=== PATIENT | male | born 1975 | race Caucasian/White ===

== ENCOUNTER 2019-07-29 08:41 | Emergency (ER) | payer MEDICAID ==
[2019-07-29 08:51] VITALS: BP 201/137
== END 2019-07-29 11:04 | disposition left against medical advice (07) ==
LOC: ED 08:41
DX: Z53.21 Procedure and treatment not carried out due to patient leaving prior to being seen by health care provider (principal)

== ENCOUNTER 2019-07-30 21:51 | Emergency (ER) | payer MEDICAID ==
--- NOTE | 2019-07-30 22:01 | ED Physician Documentation ---
PD HPI MHE - Stated complaint Stated Complaint: MHE - Chief complaint Chief Complaint: MHE - History obtained from History obtained from: Police - History of Present Illness Primary symptom: Aggressive behavior, Other (bizarre behavior) Timing - onset: Unknown Recently seen: Emergency Dept (was in this ED ([facility]) yesterday but left without being seen) - Additional information Additional information: brought to ED by police for odd behavior; per police report, patient "was walking in the middle of the roadway. He has been unable to answer direct questions." "...rambling on about random things. He disrobed himself out in public and has had multiple calls this evening with his demeanor." Patient is agitated in ED and exhibits labile affect, cannot contribute to HPI, ROS. He does not answer questions with appropriate answers. Laughing inappropriately at times, making animal noises at times. Review of Systems Unable to obtain: AMS, Uncooperative PD PAST MEDICAL HISTORY - Past Medical History Other Past Medical History: PER AYESHA form: "h/o HTN, smoking, insomnia, depression, SI, bipolar disorder, schizoaffective disorder, EtOH, homelessness." - Past Surgical History Other past surgical history: unknown - Present Medications Home Medications: Ambulatory Orders Medication Instructions Recorded Confirmed No Known Home Medications 07/29/19 07/29/19 - Allergies Allergies/Adverse Reactions: Allergies Allergy/AdvReac Type Severity Reaction Status Date / Time Unable to Assess Allergy Verified 07/29/19 08:48 PD ED PE NORMAL - Vitals Vital signs reviewed: Yes - General General: Well developed/nourished, Other (awake, alert. unable to assess orientation due to bizarre, inappropriate answers) - HEENT HEENT: PERRL - Neck Neck: Supple, no meningeal sign - Cardiac Cardiac: No murmur - Respiratory Respiratory: No respiratory distress, Clear bilaterally - Derm Derm: Normal color, Warm and dry - Extremities Extremities: Normal ROM s pain PD ED PE EXPANDED - Cardiac Cardiac: Tachy, Regular Rhythm - Psych Psych: Agitated, Flight of ideas Results - Vitals Vitals: Vital Signs - 24 hr 07/30/19 07/31/19 07/31/19 21:54 01:11 04:30 Temperature 36.9 C Heart Rate 109 H 99 73 Respiratory 24 22 14 Rate Blood Pressure 190/139 H 199/101 H 148/94 H O2 Saturation 99 98 97 Oxygen O2 Source Room air - Labs Labs: Laboratory Tests 07/30/19 07/30/19 07/31/19 23:51 23:51 00:20 WBC 8.5 RBC 4.31 L Hgb 13.0 L Hct 39.2 L MCV 91.0 MCH 30.2 MCHC 33.2 RDW 13.4 Plt Count 206 MPV 10.8 Neut # (Auto) 5.9 Lymph # (Auto) 2.0 Banks # (Auto) 0.5 Eos # (Auto) 0.1 Baso # (Auto) 0.0 Absolute Nucleated RBC 0.00 Nucleated RBC % 0.0 Sodium Potassium Chloride Carbon Dioxide Anion Gap BUN Creatinine Estimated GFR (MDRD) Glucose Calcium Total Bilirubin AST ALT Alkaline Phosphatase Total Creatine Kinase Total Protein Albumin Globulin Albumin/Globulin Ratio Lipase TSH Urine Color COLORLESS Urine Clarity CLEAR Urine pH 6.5 Ur Specific [place] <=1.005 Urine Protein NEGATIVE Urine Glucose (UA) NEGATIVE Urine Ketones NEGATIVE Urine Occult Blood NEGATIVE Urine Nitrite NEGATIVE Urine Bilirubin NEGATIVE Urine Urobilinogen 0.2 (NORMAL) Ur Leukocyte Esterase NEGATIVE Ur Microscopic Review NOT INDICATED Urine Culture Comments NOT INDICATED Salicylates Urine Opiates Screen NEGATIVE Ur Oxycodone Screen NEGATIVE Urine Methadone Screen NEGATIVE Ur Propoxyphene Screen NEGATIVE Acetaminophen Ur Barbiturates Screen NEGATIVE Ur Tricyclics Screen NEGATIVE Ur Phencyclidine Scrn NEGATIVE Ur Amphetamine Screen NEGATIVE U Methamphetamines Scrn NEGATIVE U Benzodiazepines Scrn NEGATIVE Urine Cocaine Screen NEGATIVE U Cannabinoids Screen NEGATIVE Ethyl Alcohol 07/31/19 07/31/19 07/31/19 00:20 00:20 07:13 WBC RBC Hgb Hct MCV MCH MCHC RDW Plt Count MPV Neut # (Auto) Lymph # (Auto) Banks # (Auto) Eos # (Auto) Baso # (Auto) Absolute Nucleated RBC Nucleated RBC % Sodium 141 142 Potassium 2.4 L* 2.7 L Chloride 104 107 Carbon Dioxide 25 26 Anion Gap 12.0 9.0 BUN 21 H 17 Creatinine 1.1 1.0 Estimated GFR (MDRD) 73 L 82 L Glucose 140 H 101 H Calcium 8.4 L 8.1 L Total Bilirubin 0.6 AST 24 ALT 23 Alkaline Phosphatase 68 Total Creatine Kinase 332 H Total Protein 7.2 Albumin 3.9 Globulin 3.3 Albumin/Globulin Ratio 1.2 Lipase 26 TSH 0.99 Urine Color Urine Clarity Urine pH Ur Specific [place] Urine Protein Urine Glucose (UA) Urine Ketones Urine Occult Blood Urine Nitrite Urine Bilirubin Urine Urobilinogen Ur Leukocyte Esterase Ur Microscopic Review Urine Culture Comments Salicylates < 6.0 Urine Opiates Screen Ur Oxycodone Screen Urine Methadone Screen Ur Propoxyphene Screen Acetaminophen < 10 L Ur Barbiturates Screen Ur Tricyclics Screen Ur Phencyclidine Scrn Ur Amphetamine Screen U Methamphetamines Scrn U Benzodiazepines Scrn Urine Cocaine Screen U Cannabinoids Screen Ethyl Alcohol < 5.0 PD MEDICAL DECISION MAKING - ED course Complexity details: reviewed old records, reviewed results, re-evaluated patient, considered differential ED course: Patient has an AYESHA form that is 4 pages long; it reflects [facility] ED visits to 18 different EDs over past 12 months. This is his 5th ED visit this month (4 different EDs), and he had 6 visits in June. Early in ED stay, patient was loud and exhibited highly labile and unpredictable moods, thus given IM zyprexa. He subsequently became agitated and screaming at staff. He then walked out of the ED; police were called, but patient returned to ED within several minutes. He insisted on sitting in a chair in the hallway. Police then arrived and eventually patient was escorted back into his ED room. He was again becoming angry, agitated and yelling. He was thus put in four-point restraints and given IM ketamine. This had good effect, with adequate sedation. Given IM ativan as he started to wake up and become loud and angry again. He subsequently slept for the rest of my shift. He will require reevaluation for hypokalemia and then consideration for placement via or P evaluation.
[2019-07-30] MEDS ORDERED: OLANZapine 10 MG VIAL IM STA (22:03)
[2019-07-30] MEDS ORDERED: KETAMINE 500 MG/10 ML VIAL IM STA (22:36)
[2019-07-30] MEDS ORDERED: LORazepam 2 MG/ML VIAL IM STA (23:36)
[2019-07-30] MEDS ORDERED: LORazepam 2 MG/ML VIAL ONE (23:39)
[2019-07-31] LABS: MUDS CUTOFF CONCENTRATIONS CUTOFF CONC BELOW:
[2019-07-31 00:11] LABS: AMPHETAMINE SCREEN,URINE NEGATIVE (NEGATIVE); BENZODIAZEPINES SCREEN, URINE NEGATIVE (NEGATIVE); COCAINE SCREEN URINE NEGATIVE (NEGATIVE); METHADONE SCREEN, URINE NEGATIVE (NEGATIVE); METHAMPHETAMINES SCREEN, URINE NEGATIVE (NEGATIVE); OPIATE SCREEN, URINE NEGATIVE (NEGATIVE); OXYCODONE SCREEN, URINE NEGATIVE (NEGATIVE); PROPOXYPHENE SCREEN, URINE NEGATIVE (NEGATIVE); TRICYCLIC ANTIDEPRESSANT,URINE NEGATIVE (NEGATIVE)
[2019-07-31 00:12] LABS: BILIRUBIN,URINE NEGATIVE (NEGATIVE); CLARITY,URINE CLEAR (CLEAR); GLUCOSE, URINE (UA) NEGATIVE (NEGATIVE); KETONES,URINE (UA) NEGATIVE (NEGATIVE); LEUKOCYTE ESTERASE, URINE NEGATIVE (NEGATIVE); NITRITE,URINE NEGATIVE (NEGATIVE); OCCULT BLOOD,URINE NEGATIVE (NEGATIVE); PH,URINE 6.5 PH (5.0-7.5); PROTEIN,URINE NEGATIVE (NEGATIVE); UROBILINOGEN,URINE 0.2 (NORMAL) E.U./dL (NORMAL)
[2019-07-31 00:30] LABS: BASOPHILS % (AUTO) 0.5 %; EOSINOPHILS # (AUTO) 0.1 10^3/uL (0.0-0.7); EOSINOPHILS % (AUTO) 0.7 %; LYMPHOCYTES % (AUTO) 23.1 %; MEAN CORPUSCULAR HEMOGLOBIN 30.2 pg (27.0-31.0); MEAN CORPUSCULAR HGB CONC 33.2 g/dL (32.0-36.0); MEAN PLATELET VOLUME 10.8 fL (7.4-11.4); MONOCYTES # (AUTO) 0.5 10^3/uL (0.0-1.0); MONOCYTES % (AUTO) 5.4 %; NEUTROPHILS # (AUTO) 5.9 10^3/uL (1.5-6.6); NEUTROPHILS % (AUTO) 69.8 %; PLT - PLATELET COUNT 206 10^3/uL (130-450); RED BLOOD COUNT 4.31 10^6/uL (4.70-6.10); RED CELL DISTRIBUTION WIDTH 13.4 % (12.0-15.0); WHITE BLOOD COUNT 8.5 x10^3/uL (4.8-10.8)
[2019-07-31 00:47] LABS: ACETAMINOPHEN < 10 ug/mL (10-30); ALBUMIN 3.9 g/dL (3.2-5.5); ALBUMIN/GLOBULIN RATIO 1.2 (1.0-2.2); ALKALINE PHOSPHATASE 68 IU/L (42-121); ALT ALANINE AMINOTRANSFERASE 23 IU/L (10-60); AST ASPARTATE AMINOTRANSFERASE 24 IU/L (10-42); BILIRUBIN,TOTAL 0.6 mg/dL (0.2-1.0); BUN - BLOOD UREA NITROGEN 21 mg/dL (6-20); CALCIUM 8.4 mg/dL (8.5-10.3); CARBON DIOXIDE - CO2 25 mmol/L (21-32); CHLORIDE 104 mmol/L (101-111); CK- CREATINE KINASE 332 IU/L (22-269); CREATININE 1.1 mg/dL (0.6-1.2); GLUCOSE 140 mg/dL (70-100); LIPASE 26 U/L (22-51); SALICYLATE < 6.0 mg/dL; SODIUM 141 mmol/L (135-145); TOTAL PROTEIN 7.2 g/dL (6.7-8.2)
[2019-07-31] MEDS ORDERED: POTASSIUM CHLOR 10 MEQ/100 ML 10 MEQ/100 ML BAG IV ONE ×3 (00:49→18:47)
[2019-07-31] MEDS ORDERED: SODIUM CHLORIDE 0.9% 1,000 ML IV STA ×2 (00:49→18:55)
[2019-07-31] MEDS ORDERED: POTASSIUM CHLOR 10 MEQ/100 ML 10 MEQ/100 ML BAG IV STA ×3 (04:23→21:17)
[2019-07-31] MEDS ORDERED: LORazepam 2 MG/ML VIAL IVP STA ×4 (06:17→21:08)
[2019-07-31] MEDS ORDERED: LORazepam 2 MG/ML VIAL ONE (06:22)
[2019-07-31] MEDS ORDERED: MIDAZOLAM 2 MG/2 ML VIAL IVP STA (06:25)
[2019-07-31 07:26] LABS: CALCIUM 8.1 mg/dL (8.5-10.3)
[2019-07-31] MEDS: POTASSIUM CHLOR 10 MEQ/100 ML 10 MEQ/100 ML BAG IV SCH ×4 (08:14→12:01)
[2019-07-31] MEDS ORDERED: KETAMINE 500 MG/10 ML VIAL IVP STA (14:28)
[2019-07-31] MEDS ORDERED: POTASSIUM CHLORIDE 20 MEQ TABLET PO STA (18:56)
--- NOTE | 2019-07-31 18:57 | ED Physician Documentation ---
ED Addendum - Addendum Addendum: 07/31/19 18:56 43-year-old gentleman with some psychiatric illness. At times very belligerent and potentially dangerous, he is a very large fellow. Reportedly was not medically clear for psychiatric evaluation because of hypokalemia, has had several K riders overnight. We will continue to replete the potassium and check a potassium in a couple of hours.
[2019-07-31] MEDS ORDERED: OLANZapine 10 MG VIAL IM STA (21:08)
[2019-07-31] MEDS ORDERED: MAGNESIUM SULFATE 2 GRAM 2 GM/50 ML BAG IV ONE (23:11)
[2019-08-01] MEDS ORDERED: POTASSIUM CHLOR 10 MEQ/100 ML 10 MEQ/100 ML BAG IV STA (01:13)
[2019-08-01] MEDS ORDERED: LACTATED RINGERS 1,000 ML IV STA (02:43)
[2019-08-01 04:27] LABS: CALCIUM 7.9 mg/dL (8.5-10.3); CREATININE 0.8 mg/dL (0.6-1.2); MAGNESIUM 2.2 mg/dL (1.7-2.8)
[2019-08-01] MEDS ORDERED: POTASSIUM CHLOR 10 MEQ/100 ML 10 MEQ/100 ML BAG IV ONE ×2 (04:52→07:24)
--- NOTE | 2019-08-01 05:49 | ED Physician Documentation ---
ED Addendum - Addendum Addendum: 08/01/19 05:46 The patient remains verbally oppositional and remains in restraints for safety. He does not seem to follow direction and I would be concerned for his and department safety if unrestrained. He does have history of psychiatric disorder with the apparently schizo phrenic diagnosis. Unclear if he has been on medications recently and we did try to track down prior charts. The mental health providers likely will have access to a psychiatric records. On change of shift the report to me is that he is needing psychiatric evaluation for acute psychosis and disability. However his potassium was low which would not allow for good medical clearance as yet. Unclear whether he has chronic hypokalemia. He had been given potassium supplements through the ED course so far. We can continue these. Also added magnesium as a cofactor. We can give his IV fluid maintenance changed to lactated Ringer's to provide some electrolytes and calcium as well. He was given a dose of Ativan IV when he became little more verbal the oppositional. This did allow for him to relax.
[2019-08-01] MEDS ORDERED: MIDAZOLAM 2 MG/2 ML VIAL IVP STA ×3 (06:24→12:40)
[2019-08-01] MEDS: POTASSIUM CHLOR 10 MEQ/100 ML 10 MEQ/100 ML BAG IV SCH ×3 (08:24→10:49)
[2019-08-01] MEDS ORDERED: POTASSIUM CHLORIDE 20 MEQ TABLET PO STA (08:27)
[2019-08-01] MEDS ORDERED: LORazepam 2 MG/ML VIAL IVP STA ×2 (08:32→15:33)
[2019-08-01] MEDS ORDERED: OLANZapine 10 MG VIAL IM ONE (08:33)
--- NOTE | 2019-08-01 08:36 | ED Physician Documentation ---
ED Addendum - Addendum Addendum: 08/01/19 08:33 43-year-old male remains verbally confrontational and in restraints. He continues to have low potassium despite K riders and K riders are running at 10 mEq/h again. He refuses oral potassium. He was medicated last night with IM Zyprexa and Ativan. This morning on awakening he is again verbally confrontational and not redirectable. He remains in restraint. He is loud and disrupting the atmosphere of the emergency department. He is administered again doses of IM Zyprexa and Ativan. Our expectation is to get his potassium over 3 and cleared him for psychiatric evaluation. This apparently has been a problem with the patient previously as per notes from [facility]. 08/01/19 15:34 Despite repeated K riders of 10 mEq each and administration of over 110 mEq over the past day the patient's serum sodium remains below 3. He still refuses PO potassium. The DCR is consulted and the case and the patient does have a less restrictive that he has violated. He is formally detained and it is recommended we sedate the patient more heavily. He is administered Benadryl Haldol and Ativan. 08/01/19 15:37
[2019-08-01] MEDS ORDERED: SODIUM CHLORIDE 0.9% 1,000 ML IV STA (11:24)
[2019-08-01] MEDS ORDERED: diphenhydrAMINE INJ 50 MG/ML VIAL IVP STA ×2 (11:24→15:32)
[2019-08-01] MEDS ORDERED: HALOPERIDOL 5 MG/ML VIAL IVP ONE (15:32)
[2019-08-02] MEDS: POTASSIUM CHLOR 10 MEQ/100 ML 10 MEQ/100 ML BAG IV SCH ×8 (00:58→12:26)
[2019-08-02] MEDS ORDERED: LORazepam 2 MG/ML VIAL IVP STA ×2 (01:21→13:08)
[2019-08-02] MEDS ORDERED: SODIUM CHLORIDE 0.9% 1,000 ML IV STA (01:38)
[2019-08-02] MEDS ORDERED: MIDAZOLAM 2 MG/2 ML VIAL IVP STA (01:55)
[2019-08-02] MEDS ORDERED: KETAMINE 500 MG/10 ML VIAL IVP STA ×2 (02:38→02:39)
[2019-08-02] MEDS ORDERED: HALOPERIDOL 5 MG/ML VIAL IVP ONE ×2 (02:47→13:07)
[2019-08-02] MEDS ORDERED: diphenhydrAMINE INJ 50 MG/ML VIAL IVP STA ×2 (02:48→13:08)
[2019-08-02] MEDS ORDERED: POTASSIUM CHLOR 10 MEQ/100 ML 10 MEQ/100 ML BAG IV STA (17:16)
[2019-08-02] MEDS ORDERED: POTASSIUM CHLOR 10 MEQ/100 ML 10 MEQ/100 ML BAG IV ONE (17:16)
--- NOTE | 2019-08-02 17:16 | ED Physician Documentation ---
ED Addendum - Addendum Addendum: 08/02/19 17:15 Mostly quiet on my shift today but occasionally waking up and belligerence. DCR Lucero called me, she has to do a no bed walk away because there is nowhere to put him today. She understands though he is not dischargeable in high acuity so he will have to continue to be in the ER.
[2019-08-02] MEDS ORDERED: SPIRONOLACTONE 25 MG TABLET PO STA (17:17)
[2019-08-02] MEDS: MAGNESIUM SULFATE 2 GRAM 2 GM/50 ML BAG IV ONE ×2 (18:23→18:32)
[2019-08-02] MEDS ORDERED: POTASSIUM CHLORIDE 20 MEQ TABLET PO STA (18:25)
[2019-08-02] MEDS ORDERED: MAGNESIUM OXIDE 400 MG TABLET PO STA (18:25)
[2019-08-03] MEDS: OLANZapine ODT 5 MG TABLET TL SCH ×3 (08:04→20:08)
[2019-08-03] MEDS: SPIRONOLACTONE 25 MG TABLET PO SCH (08:21)
[2019-08-03] MEDS ORDERED: LORazepam 2 MG/ML VIAL IM STA (16:45)
[2019-08-03] MEDS ORDERED: KETAMINE 500 MG/10 ML VIAL IM STA (17:10)
[2019-08-03] MEDS ORDERED: MAGNESIUM OXIDE 400 MG TABLET PO STA (18:46)
[2019-08-03] MEDS ORDERED: POTASSIUM CHLORIDE 20 MEQ TABLET PO STA (18:46)
--- NOTE | 2019-08-03 18:48 | ED Physician Documentation ---
ED Addendum - Addendum Addendum: 08/03/19 18:47 Early my shift he was doing okay be started to escalate a little bit later in my shift and required some as needed meds. Spoke with the DCR, his potassium really is not any better today. They need his potassium to be above 3.5 and QTC to be below I think 455, neither of which are currently true. We will continue electrolyte replacement.
[2019-08-04] MEDS: OLANZapine ODT 5 MG TABLET TL SCH (09:21)
[2019-08-04] MEDS: SPIRONOLACTONE 25 MG TABLET PO SCH (09:22)
[2019-08-04] MEDS: POTASSIUM CITRATE 5 MEQ TABLET PO SCH (16:11)
--- NOTE | 2019-08-04 17:12 | ED Physician Documentation ---
ED Addendum - Addendum Addendum: 08/04/19 17:08 The reportedly the patient had been having loosening of restraints. The nurses are apparently keeping at least one on for him allowing some use of his hand. He has been pretty stable today without any real yelling out or acting out. He was evaluated again by [facility] and they checked with several facilities about hospitalization. The [facility] sent a short note to us with the feedback from the facilities that he had several issues that needed resolving. Collectively these issues were: 1. He needed to be out of restraints for at least 4 hours as several facilities would not take them still in restraints 2. His potassium needed to be improved to above 3.5 though one facility would take it above 3.2. 3. He needed to have a COVID test. 4. His QT interval needed to be below 470. At least 1 of those is already resolved and that his EKG had shown a QT interval below 470 already. I did order a COVID test. We have been able to loosen up some of the restraints and will see how he can do without them later or into tomorrow. The main issue of his potassium is hard to know whether it is truly solvable since it sounds like he has chronic hypokalemia. The last check of it was 3.0. He has ordered daily spironolactone apparently to try to improve on it. I added in some oral potassium twice daily. We can recheck his potassium this evening in hopes that it is improved enough for [facility] to work with him tomorrow.
[2019-08-04 20:48] LABS: CALCIUM 9.1 mg/dL (8.5-10.3); CREATININE 0.9 mg/dL (0.6-1.2)
[2019-08-05] MEDS: OLANZapine ODT 5 MG TABLET TL SCH ×2 (01:16→08:00)
[2019-08-05] MEDS: POTASSIUM CITRATE 5 MEQ TABLET PO SCH ×2 (01:16→08:00)
[2019-08-05] MEDS ORDERED: LORazepam 1 MG TABLET PO STA (07:42)
[2019-08-05] MEDS: SPIRONOLACTONE 25 MG TABLET PO SCH (08:00)
[2019-08-05 09:24] VITALS: BP 166/109
--- NOTE | 2019-08-24 19:53 | ED Physician Documentation ---
ED Addendum - Addendum Addendum: 08/24/19 19:52 Diagnoses: 1. Schizoaffective disorder with exacerbation. 2. Psychosis 3. Hypokalemia 4. AGitated behavior.
== END 2019-08-05 10:25 | disposition home or self-care (01) ==
LOC: ED 21:51
DX: F25.9 Schizoaffective disorder, unspecified (principal); F29 Unspecified psychosis not due to a substance or known physiological condition; E87.6 Hypokalemia; I45.81 Long QT syndrome; R45.1 Restlessness and agitation; I10 Essential (primary) hypertension; F17.200 Nicotine dependence, unspecified, uncomplicated; Z59.0 Homelessness; Z78.1 Physical restraint status; Z11.59 Encounter for screening for other viral diseases; Z75.1 Person awaiting admission to adequate facility elsewhere
CPT/HCPCS: 36415; 80048; 80053; 80306; 80307; 80320; 80329; 81003; 82550; 83690; 83735; 84132; 84443; 85025; 87635; 93005; 96365; 96366; 96367; 96372; 96375; 96376; 99281; 99285; A9270; J1200; J2060; J7120; J8499; 81001; 81599; 87086

== ENCOUNTER 2019-08-10 19:17 | Emergency (ER) | payer MEDICAID ==
[2019-08-10 19:25] VITALS: BP 206/123
--- NOTE | 2019-08-10 19:37 | ED Physician Documentation ---
History of Present Illness - Stated complaint Stated Complaint: BILAT FOOT PX AND BLISTERS - Chief complaint Chief Complaint: Ext Problem - History obtained from History obtained from: Patient - History of Present Illness Timing: Chronic Pain level max: 0 Pain level now: 0 - Additonal information Additional information: 43-year-old male, homeless presents to the emergency department stating that he would like a place to shower and wash his feet. He states he was kicked out of the homeless care home for behavioral issues. He also request the name of a doctor to follow-up with for a "full physical exam". He has no current complaints. Review of Systems Constitutional: denies: Fever Cardiac: denies: Chest pain / pressure Respiratory: denies: Cough GI: denies: Vomiting, Diarrhea Skin: denies: Rash Musculoskeletal: denies: Neck pain, Back pain Neurologic: denies: Headache PD PAST MEDICAL HISTORY - Past Medical History Past Medical History: Yes Psych: Schizophrenia - Present Medications Home Medications: Ambulatory Orders Medication Instructions Recorded Confirmed OLANZapine [Zyprexa] 10 mg PO BID #60 tablet 08/05/19 - Allergies Allergies/Adverse Reactions: Allergies Allergy/AdvReac Type Severity Reaction Status Date / Time Unable to Assess Allergy Verified 08/10/19 19:22 - Living Situation Living Arrangement: reports: Homeless - Social History Does the pt smoke?: No Smoking Status: Never smoker - Family History Family history: reports: Non contributory PD ED PE NORMAL - Vitals Vital signs reviewed: Yes - General General: Alert and oriented X 3, No acute distress - HEENT HEENT: Moist mucous membranes - Neck Neck: Supple, no meningeal sign - Cardiac Cardiac: RRR - Respiratory Respiratory: No respiratory distress, Clear bilaterally - Abdomen Abdomen: Soft, Non tender, Non distended - Derm Derm: Warm and dry - Extremities Extremities: Other (Bilateral feet are callused, no signs of infection. No blistering. No vesicles.) - Neuro Neuro: Alert and oriented X 3 Results - Vitals Vitals: Vital Signs - 24 hr 08/10/19 19:22 Temperature 36.5 C Heart Rate 93 Respiratory 16 Rate Blood Pressure 206/123 H O2 Saturation 98 Oxygen O2 Source Room air PD MEDICAL DECISION MAKING - ED course Complexity details: considered differential, d/w patient ED course: No emergency medical condition at this time. No acute condition that needs evaluation. Patient is alert, oriented and appropriate. We will give him the name of several clinics [place] as well as the [facility] where he has been referred to in the past. Patient counseled regarding signs and symptoms for which I believe and urgent re-evaluation would be necessary. Patient with good understanding of and agreement to plan and is comfortable going home at this time This document was made in part using voice recognition software. While efforts are made to proofread this document, sound alike and grammatical errors may occur. Patient with 66 emergency department visits in the past year to 18 different emergency department. Departure - Departure Disposition: 01 Home, Self Care Clinical Impression: Encounter for medical screening examination Condition: Good Instructions: ED Screening Exam Medical Nonurgent Follow-Up: [facility] [Provider Group] [facility] [Provider Group] [facility] [Provider Group] Comments: Follow-up with your doctor for further care. You do not have an emergency medical condition tonight. Discharge Date/Time: 08/10/19 19:39
== END 2019-08-10 19:39 | disposition home or self-care (01) ==
LOC: ED 19:17
DX: Z76.89 Persons encountering health services in other specified circumstances (principal); L84 Corns and callosities; Z59.0 Homelessness
CPT/HCPCS: 99282

== ENCOUNTER 2019-08-12 05:24 | Outpatient (CLI) | payer MEDICAID | END 2019-08-12 05:25 | disposition critical access hospital (66) | LOC: EMS 05:24 | PROVIDERS: ATTEND Surgery | DX: R10.9 Unspecified abdominal pain (principal); Z59.0 Homelessness | CPT/HCPCS: A0425; A0429 ==

== ENCOUNTER 2019-08-12 05:43 | Emergency (ER) | payer MEDICAID ==
[2019-08-12 05:48] VITALS: BP 192/129
--- NOTE | 2019-08-12 06:02 | ED Physician Documentation ---
PD HPI ABD PAIN - Stated complaint Stated Complaint: AB PX - History obtained from History obtained from: Patient, EMS - History of Present Illness Timing - onset: How many hours ago (1) Timing - duration: Hours (1) Timing - details: Gradual onset Pain level max: 4 Pain level now: 2 Quality: Aching, Pain Location: Epigastric Radiation: No: Chest, , Lower back, Left flank, Left shoulder, Right flank, Right shoulder, Upper back Improved by: Other (nothing) Worsened by: Eating (states started after drinking a bottle of maple syrup) Associated symptoms: No: Fever, Nausea, Vomiting, Hematemesis, Diarrhea, Constipation, Melena, Hematochezia, Dysuria, Hematuria, Chest pain, Dizzy, Near syncope / syncope, Loss of appetite, Weight loss - Additional information Additional information: Patient with 67 emergency department visits to 18 emergency departments in the last 12 months. Review of Systems Ten Systems: 10 systems reviewed and negative Constitutional: denies: Fever, Chills Respiratory: denies: Cough GI: denies: Nausea, Vomiting, Diarrhea, Hematemesis, Bloody / black stool : denies: Dysuria Skin: denies: Rash Musculoskeletal: denies: Neck pain, Back pain PD PAST MEDICAL HISTORY - Past Medical History Past Medical History: Yes Psych: Schizophrenia - Present Medications Home Medications: Ambulatory Orders Medication Instructions Recorded Confirmed OLANZapine [Zyprexa] 10 mg PO BID #60 tablet 08/05/19 Potassium Chloride 20 meq PO DAILY #7 tablet.er 08/12/19 - Allergies Allergies/Adverse Reactions: Allergies Allergy/AdvReac Type Severity Reaction Status Date / Time ALL OF THEM AdvReac Unknown Uncoded 08/12/19 05:51 - Social History Does the pt smoke?: No Smoking Status: Never smoker PD ED PE NORMAL - Vitals Vital signs reviewed: Yes - General General: Alert and oriented X 3, No acute distress, Well developed/nourished - HEENT HEENT: PERRL, Moist mucous membranes - Neck Neck: Supple, no meningeal sign - Cardiac Cardiac: RRR, Strong equal pulses - Respiratory Respiratory: No respiratory distress, Clear bilaterally - Abdomen Abdomen: Normal bowel sounds, Soft, Non tender, Non distended - Back Back: No CVA TTP, No spinal TTP - Derm Derm: Warm and dry - Extremities Extremities: No calf tenderness / cord - Neuro Neuro: Alert and oriented X 3 - Psych Psych: Normal mood, Normal affect Results - Vitals Vitals: Vital Signs - 24 hr 08/12/19 08/12/19 08/12/19 05:45 05:53 06:21 Temperature 37.1 C Heart Rate 81 Respiratory 18 17 17 Rate Blood Pressure 192/129 H O2 Saturation 99 Oxygen O2 Source Room air - Labs Labs: Laboratory Tests 08/12/19 08/12/19 05:55 05:55 WBC 7.5 RBC 4.59 L Hgb 13.9 L Hct 42.5 MCV 92.6 MCH 30.3 MCHC 32.7 RDW 13.2 Plt Count 221 MPV 10.6 Neut # (Auto) 5.2 Lymph # (Auto) 1.5 [place] # (Auto) 0.4 Eos # (Auto) 0.3 Baso # (Auto) 0.0 Absolute Nucleated RBC 0.00 Nucleated RBC % 0.0 Sodium 140 Potassium 2.4 L* Chloride 99 L Carbon Dioxide 31 Anion Gap 10.0 BUN 16 Creatinine 0.9 Estimated GFR (MDRD) 93 Glucose 140 H Calcium 8.5 Total Bilirubin 0.7 AST 19 ALT 25 Alkaline Phosphatase 71 Total Protein 8.0 Albumin 4.2 Globulin 3.8 Albumin/Globulin Ratio 1.1 Lipase 26 PD MEDICAL DECISION MAKING - ED course Complexity details: reviewed old records, reviewed results, re-evaluated patient, considered differential, d/w patient ED course: Patient with abdominal pain of unclear etiology. Likely related to the large ingestion of maple syrup prior to arrival. Normal laboratory testing. Patient is well-appearing, nontoxic. Afebrile. Patient has chronically low potassium. He has not taken his potassium as prescribed. Potassium given orally here and will see him for home. Patient counseled regarding signs and symptoms for which I believe and urgent re-evaluation would be necessary. Patient with good understanding of and agreement to plan and is comfortable going home at this time This document was made in part using voice recognition software. While efforts are made to proofread this document, sound alike and grammatical errors may occur. Departure - Departure Disposition: 01 Home, Self Care Clinical Impression: Encounter for medical screening examination, Hypokalemia Abdominal pain Qualifiers: Abdominal location: epigastric Qualified Code(s): R10.13 - Epigastric pain Condition: Good Instructions: ED Abdominal Pain Unkn Cause Follow-Up: your,doctor in 1 week [Other] Prescriptions: Potassium Chloride 20 meq PO DAILY #7 tablet.er Comments: Follow-up with your doctor for further care. Your stomach is likely hurting from drinking the bottle of maple syrup tonight. Return if you worsen. You need to start on potassium supplements as well.
[2019-08-12 06:05] LABS: BASOPHILS % (AUTO) 0.5 %; EOSINOPHILS # (AUTO) 0.3 10^3/uL (0.0-0.7); EOSINOPHILS % (AUTO) 3.6 %; HGB - HEMOGLOBIN 13.9 g/dL (14.0-18.0); LYMPHOCYTES # (AUTO) 1.5 10^3/uL (1.5-3.5); LYMPHOCYTES % (AUTO) 20.5 %; MEAN CORPUSCULAR HEMOGLOBIN 30.3 pg (27.0-31.0); MEAN CORPUSCULAR HGB CONC 32.7 g/dL (32.0-36.0); MEAN CORPUSCULAR VOLUME 92.6 fL (80.0-94.0); MEAN PLATELET VOLUME 10.6 fL (7.4-11.4); MONOCYTES # (AUTO) 0.4 10^3/uL (0.0-1.0); MONOCYTES % (AUTO) 5.3 %; NEUTROPHILS # (AUTO) 5.2 10^3/uL (1.5-6.6); NEUTROPHILS % (AUTO) 69.7 %; PLT - PLATELET COUNT 221 10^3/uL (130-450); RED BLOOD COUNT 4.59 10^6/uL (4.70-6.10); RED CELL DISTRIBUTION WIDTH 13.2 % (12.0-15.0); WHITE BLOOD COUNT 7.5 x10^3/uL (4.8-10.8)
[2019-08-12 06:21] LABS: ALBUMIN 4.2 g/dL (3.2-5.5); ALBUMIN/GLOBULIN RATIO 1.1 (1.0-2.2); BILIRUBIN,TOTAL 0.7 mg/dL (0.2-1.0); CALCIUM 8.5 mg/dL (8.5-10.3); CREATININE 0.9 mg/dL (0.6-1.2)
[2019-08-12] MEDS ORDERED: POTASSIUM CHLORIDE 20 MEQ TABLET PO STA (06:24)
== END 2019-08-12 06:44 | disposition home or self-care (01) ==
LOC: EDUNIT# → ED 05:43
DX: R10.13 Epigastric pain (principal); E87.6 Hypokalemia; Z91.14 Patient's other noncompliance with medication regimen
CPT/HCPCS: 36415; 80053; 83690; 85025; 99283; 99284; A9270